=== PATIENT | female | born 2000 | race African-American/Black ===

== ENCOUNTER 2022-11-20 15:27 | Emergency (ER) | payer OTHER ==
[~2022-11-20] VITALS: Ht 157.5 cm; Wt 82.0 kg
[2022-11-20 15:27] VITALS: BP 137/73
[~2022-11-20 15:27] MED LIST: BENZ200C70 PO; FLON1SPR NARES
== END 2022-11-20 21:45 | disposition left against medical advice (07) ==
LOC: M ED 15:27
DX: Z53.21 Procedure and treatment not carried out due to patient leaving prior to being seen by health care provider (principal)

== ENCOUNTER 2022-12-11 17:28 | Emergency (ER) | payer OTHER ==
[~2022-12-11] VITALS: Ht 157.5 cm; Wt 77.9 kg
[2022-12-11 17:29] VITALS: BP 117/66
[2022-12-11] MEDS ORDERED: METR70GEL (17:43)
[2022-12-11] MEDS ORDERED: PYRI50TA41 (17:43)
[2022-12-11] MEDS ORDERED: UNIS25TA3 (17:43)
[2022-12-11 18:42] LABS: BASO % 0.4 % (0.0-1.0); EOS # 0.2 10^3/uL (0.0-0.5); EOS % 2.2 % (0.0-3.0); HEMATOCRIT 41.5 % (36.0-47.0); HEMOGLOBIN 13.7 g/dl (12.0-15.5); LYMPH # 1.5 10^3/uL (1.5-5.0); LYMPH % 22.4 % (24.0-44.0); MEAN CORPUSCULAR HEMOGLOBIN 29.7 pg (27.0-33.0); MEAN CORPUSCULAR VOLUME 89.8 fl (80.0-96.0); MONO # 0.6 10^3/uL (0.0-0.8); MONO % 8.4 % (2.0-8.0); NEUTROPHILS # 4.4 10^3/uL (1.5-8.5); NEUTROPHILS % 66.3 % (36.0-66.0); PLATELET COUNT, AUTOMATED 332 10^3/uL (150-450); RED BLOOD COUNT 4.62 10^6/uL (4.00-5.40); WHITE BLOOD COUNT 6.7 10^3/uL (4.0-10.0)
[2022-12-11 18:58] LABS: APPEARANCE, URINE MANUAL HAZY (CLEAR); BILIRUBIN, URINE MANUAL NEGATIVE (NEGATIVE); BLOOD URINE MANUAL POSITIVE (NEGATIVE); COLOR, URINE MANUAL YELLOW (YELLOW); GLUCOSE, URINE (UA) MANUAL NEGATIVE (NEGATIVE); KETONE, URINE MANUAL NEGATIVE (NEGATIVE); LEUKOCYTE ESTERASE, URINE MAN NEGATIVE (NEGATIVE); NITRITE, URINE MANUAL NEGATIVE (NEGATIVE); PROTEIN, URINE MANUAL 1+ mg/dL (NEGATIVE); UROBILINOGEN, URINE MANUAL 1 MG mg/dl (NORMAL)
[2022-12-11 19:11] LABS: BACTERIA, URINE SMALL AMOUNT; SQUAMOUS EPITHELIAL CELL URINE MOD AMOUNT /hpf (SMALL AMT); WBC, URINE 0-1 /hpf (0-3)
[2022-12-11 19:12] LABS: MUCUS, URINE MOD AMOUNT (NEGATIVE)
[2022-12-11 19:24] LABS: HYALINE CAST, URINE NONE SEEN /lpf (0-1)
== END 2022-12-11 20:19 | disposition home or self-care (01) ==
LOC: M ED 17:28
DX: O34.61 Maternal care for abnormality of vagina, first trimester (principal); O34.81 Maternal care for other abnormalities of pelvic organs, first trimester; Z3A.01 Less than 8 weeks gestation of pregnancy

== ENCOUNTER → 2023-02-01 | Outpatient (CLI) | payer OTHER ==
[~2023-02-01] MED LIST changes: +METR70GEL; +PYRI50TA41; +UNIS25TA3
== END ==
LOC: M RAD 11:22
PROVIDERS: ATTEND Physician Assistant
DX: N83.291 Other ovarian cyst, right side (principal)